=== PATIENT | female | born 1985 | race Caucasian/White ===

== ENCOUNTER 2018-11-11 10:08 | Emergency (ER) | payer OTHER ==
[~2018-11-11] VITALS: Ht 167.6 cm; Wt 56.7 kg
[2018-11-11 10:38] VITALS: BP 115/51
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
[2018-11-11] MEDS ORDERED: IBUPROFEN 400 MG TAB PO ONE (11:25)
--- NOTE | 2018-11-11 11:46 | NUR ---
Patient discharged with v/s stable. Written and verbal after care instructions given and explained. Patient alert, oriented and verbalized understanding of instructions. Ambulatory with steady gait. All questions addressed prior to discharge. ID band removed. Patient advised to follow up with PMD. Rx of NORCO AND NAPROSYN given. Patient educated on indication of medication including possible reaction and side effects. Opportunity to ask questions provided and answered.
== END 2018-11-11 11:46 | disposition home or self-care (01) ==
LOC: MED 10:08
DX: S16.1XXA Strain of muscle, fascia and tendon at neck level, initial encounter (principal); S29.012A Strain of muscle and tendon of back wall of thorax, initial encounter; S00.12XA Contusion of left eyelid and periocular area, initial encounter; S20.01XA Contusion of right breast, initial encounter; S90.414A Abrasion, right lesser toe(s), initial encounter; F32.9 Major depressive disorder, single episode, unspecified; Z88.0 Allergy status to penicillin; Z98.890 Other specified postprocedural states; V89.2XXA Person injured in unspecified motor-vehicle accident, traffic, initial encounter; Y93.89 Activity, other specified; Y92.411 Interstate highway as the place of occurrence of the external cause; Y99.8 Other external cause status
CPT/HCPCS: 81002; 81025; 99283